=== PATIENT | male | born 1990 | race Caucasian/White ===

== ENCOUNTER 2016-12-25 13:02 | Emergency (ER) | payer MEDICAID, OTHER ==
[2016-12-25] MEDS ORDERED: Silver Sulfadiazine 1% Crm 50 GM Tube TOP ONE (13:59)
[2016-12-25] MEDS ORDERED: Acetaminophen/HYDROcodone 325-5 MG Tab ONE (14:01)
[2016-12-25] MEDS ORDERED: Acetaminophen/HYDROcodone 325-5 MG Tab PO STA (14:17)
--- NOTE | 2016-12-25 14:26 | EDM.PDOC ---
ED HPI Skin/Rash - General Chief Complaint: Skin Complaint Stated Complaint: BURN ON ABDOMIN Time Seen by Provider: 12/25/16 13:02 Source: Reports: Patient, Other (coworker) History Limitations: Reports: No limitations - History of Present Illness INITIAL COMMENTS - FREE TEXT/NARRATIVE: 26 years old w najma came with a coworker to the ed 1 hour after he spilled "concentrated upgrade" = sugarwater to the r groin and r lower abdomen. Pt irrigate the area with water. As the patient arrives her in the ed, he noticed blisters at the center of each lesion. TD UTD 2010, No N/V/D or any other constitutional symptoms/issues. Symptom Onset Date: 12/25/16 Symptom Onset Time: 12:05 Timing: Reports: still present Location, Skin: Reports: abdomen, lower extremity, right Quality: Reports: Sharp Severity: moderate Known Identified Source: yes (concentarted upgrade (?)) Place: work Sick Contact: no Associated symptoms: Reports: rash (nonchemical burn) Similar Symptoms Previously: no Recent Medical Care: no - Related Data Allergies Allergy/AdvReac Type Severity Reaction Status Date / Time Sulfa (Sulfonamide Allergy Rash Verified 12/25/16 14:32 Antibiotics) Home Meds: Ambulatory Orders Medication Instructions Recorded Confirmed NK [No Known Home Meds] 12/25/16 12/25/16 ED ROS GENERAL - Review of Systems Review Of Systems: See Below Constitutional: Reports: no symptoms HEENT: Reports: No symptoms Respiratory: Reports: No Symptoms Endocrine: Reports: no symptoms GI/Abdominal: Reports: No symptoms : Reports: no symptoms Musculoskeletal: Reports: no symptoms Skin: Reports: rash (r groin and r ant abd. wall) Neurological: Reports: No Symptoms Psychiatric: Reports: No symptoms Hematologic/Lymphatic: Reports: no symptoms Immunologic: Reports: no symptoms ED EXAM, SKIN/RASH Exam: See Below Exam Limited By: No limitations General Appearance: alert Eye Exam: bilateral eye: abnormal EOM Ears: normal external exam Nose: normal inspection, normal mucosa, no blood Throat/Mouth: Normal inspection, Normal lips, Normal teeth Head: atraumatic, normocephalic, facial swelling, facial tenderness, sinus tenderness Neck: normal inspection, supple, non-tender, full range of motion Respiratory/Chest: no respiratory distress, lungs clear, normal breath sounds, no accessory muscle use, chest non-tender Cardiovascular: normal peripheral pulses, regular rate, rhythm, no edema, no gallop, no JVD, no murmur, no rub Peripheral Pulses: 2+: femoral (L), femoral (R) GI/Abdominal: normal bowel sounds, soft, non tender, no organomegaly, no distention, no abnormal bruit (Male) Exam: Deferred Rectal (Males) Exam: Deferred Back Exam: normal inspection, full range of motion Extremities: normal inspection, normal range of motion, non-tender, no pedal edema, normal capillary refill Neurological: alert, oriented, CN II-XII intact, normal cognition, normal gait Psychiatric: normal affect Skin: Rash (2nd degree burn 2% of TBSA (1% at r groin, 1% r ab. wall) not involved) Location, Skin: abdomen, groin Characteristics: bullous Associated features: warmth Lymphatic: no adenopathy Course - Vital Signs Text/Narrative:: 26 years old w najma came with a coworker to the ed 1 hour after he spilled "concentrated upgrade" = sugarwater to the r groin and r lower abdomen. Pt irrigate the area with water. As the patient arrives her in the ed, he noticed blisters at the center of each lesion. TD UTD 2010, No N/V/D or any other constitutional symptoms/issues. Note: Innitially i was told the patient has NKDA , later on he reported he is allergic to sulfa. when a received the note, Silversulfadien was already applied. Silversulfadiene was taken off and Neosporine ointment was applied which has sulfite as ingredient, not sulfate, as per pharmacist. PE: 2nd degre burn r groin 1% TBSA and r lower abd. 1% of TBSA Impression: 2nd degre burn r groin 1% TBSA and r lower abd. 1% of TBSA Tx: Please see note above. Neosporine ointment Reexam: Improved Plan: D/c with instructions. Pt requested no off work days, no work restrictions. I concurred. Pt stated he will go home now and has off tomorrow. Back to work . Last Recorded V/S: Last Vital Signs Temp 36.8 C 04/25/17 13:10 Pulse 115 H 12/25/16 13:10 Resp 18 12/25/16 13:10 BP 145/78 H 12/25/16 13:10 Pulse Ox 99 12/25/16 13:10 Departure - Departure Time of Disposition: 14:50 Disposition: Home, Self-Care 01 Condition: good Clinical Impression: 2Nd degree burn, Vanessa of multiple specified sites Instructions: Burn Care Referrals: Paresh Ramos MD [Primary Care Provider] - Forms: ED Department Discharge Additional Instructions: Please apply neosporine to wound twice daily for 7 days, please follow up with your PMD in 1-3 days, please come back to the ed if your symptoms get worse acutely. Motrin for pain.
[2016-12-25 15:33] VITALS: BP 152/85
== END 2016-12-25 15:15 | disposition home or self-care (01) ==
LOC: FB.ED 13:02
DX: T21.22XA Burn of second degree of abdominal wall, initial encounter (principal); T31.0 Burns involving less than 10% of body surface; Z88.2 Allergy status to sulfonamides
CPT/HCPCS: 99000; 99283; A9270